=== PATIENT | male | born 1965 | race Two or more races ===

== ENCOUNTER 2024-03-10 12:30 | Emergency (ER) | payer OTHER ==
[~2024-03-10] VITALS: Ht 175.3 cm; Wt 93.0 kg
[2024-03-10 12:33] VITALS: BP 144/90; TEMP 98.3
[2024-03-10 14:51] VITALS: O2SAT 98
== END 2024-03-10 15:03 | disposition left against medical advice (07) ==
LOC: ER 12:38
DX: M25.522 Pain in left elbow (principal); E11.9 Type 2 diabetes mellitus without complications; I10 Essential (primary) hypertension
CPT/HCPCS: 73080-TC